=== PATIENT | female | born 1970 | race Caucasian/White ===

== ENCOUNTER 2017-12-02 05:29 | Inpatient (IN) | payer OTHER ==
[2017-12-02] MEDS ORDERED: Gabapentin 300 MG Cap PO ONE (06:12)
[2017-12-02] MEDS ORDERED: Celecoxib 200 MG Cap PO ONE (06:12)
[2017-12-02] MEDS ORDERED: Scopolamine 1.5 MG Transdermal Patch TOP ONE (06:12)
[2017-12-02] MEDS ORDERED: Acetaminophen 500 MG Tab PO ONE (06:12)
[2017-12-02] MEDS ORDERED: cefOXitin 2 GM Vial ONE (06:45)
[2017-12-02] MEDS: Dextrose 5%-Lactated Ringers 1,000 ML IV SCH ×2 (06:58→11:13)
[2017-12-02] MEDS ORDERED: Albuterol/Ipratropium 3.0-0.5 MG/3 ML Neb Soln NEB ONE (07:00)
[2017-12-02] MEDS ORDERED: cefOXitin 2 GM in Sodium Chloride 0.9% 50 ML IV ONE (07:15)
[2017-12-02] MEDS ORDERED: cefOXitin 2 GM in Sodium Chloride 0.9% 100 ML IV ONE (07:15)
[2017-12-02] MEDS ORDERED: Lidocaine 0.4%/D5W 2 GM/500 ML BAG IV SCH (07:30)
[2017-12-02] MEDS ORDERED: Ketamine 500 MG/5 ML MDV IV SCH (07:30)
[2017-12-02] MEDS ORDERED: Lidocaine 2% 100 MG/5 ML Syringe IVPUSH ONE (07:30)
[2017-12-02] MEDS ORDERED: Ropivacaine 60 ML, Dexamethasone 8 MG, EPINEPHrine 0.4 MG, Sodium Chloride 0.9% 17.6 ML NERVRT SCH ×4 (07:30)
[2017-12-02] MEDS ORDERED: Dexamethasone 4 MG/ML SDV ONE (07:32)
[2017-12-02] MEDS ORDERED: Succinylcholine 200 MG/10 ML MDV ONE (07:32)
[2017-12-02] MEDS ORDERED: Propofol 200 MG/20 ML SDV ONE (07:32)
[2017-12-02] MEDS ORDERED: Ondansetron 4 MG/2 ML SDV ONE (07:32)
[2017-12-02] MEDS ORDERED: Glycopyrrolate 0.2 MG/ML 5 ML MDV ONE (07:32)
[2017-12-02] MEDS ORDERED: Rocuronium 50 MG/5 ML Vial ONE (07:32)
[2017-12-02] MEDS ORDERED: Neostigmine Methylsulfate 1 MG/ML 5 ML Syringe ONE (07:32)
[2017-12-02] MEDS ORDERED: Labetalol 20 MG/4 ML Syringe ONE (07:58)
[2017-12-02] MEDS ORDERED: Insulin Aspart 100 Units/ML 3 ML Pen SUBCUT ONE ×3 (09:40→21:44)
[2017-12-02] MEDS ORDERED: Dextrose 5%-Lactated Ringers 1,000 ML IV SCH (12:00)
[2017-12-02] MEDS ORDERED: Albuterol/Ipratropium 3.0-0.5 MG/3 ML Neb Soln ONE (12:00)
[2017-12-02] MEDS ORDERED: HYDROmorphone/Normal Saline 15 MG/30 ML PCA IV PRN (12:01)
[2017-12-02] MEDS ORDERED: Naloxone 0.4 MG/ML SDV IV PRN (12:01)
[2017-12-02] MEDS ORDERED: Labetalol 20 MG/4 ML Syringe IVPUSH PRN (13:00)
[2017-12-02] MEDS ORDERED: Metoclopramide 10 MG/2 ML SDV IVPUSH PRN (13:00)
[2017-12-02] MEDS ORDERED: Albuterol/Ipratropium 3.0-0.5 MG/3 ML Neb Soln INH PRN (13:00)
[2017-12-02] MEDS ORDERED: 50% Dextrose in Water 50 ML Syringe IVPUSH PRN (13:00)
[2017-12-02] MEDS ORDERED: Ondansetron 4 MG/2 ML SDV IVPUSH PRN (13:00)
[2017-12-02] MEDS ORDERED: diphenhydrAMINE 50 MG/ML SDV IVPUSH PRN (13:00)
[2017-12-02] MEDS ORDERED: Glucagon,Human Recombinant 1 MG Vial IM PRN (13:00)
[2017-12-02] MEDS ORDERED: hydrOXYzine HCl 100 MG/2 ML SDV IM PRN (13:00)
[2017-12-02] MEDS: cefOXitin 2 GM in Sodium Chloride 0.9% 50 ML IV SCH ×2 (13:24→19:59)
[2017-12-02] MEDS ORDERED: Pantoprazole 40 MG Vial IVPUSH SCH (14:00)
[2017-12-02] MEDS ORDERED: Gabapentin 250 MG/5 ML Solution ML 470 ML Bottle PO SCH (14:00)
[2017-12-02] MEDS: Acetaminophen Soln 650 MG/20.3 ML UD Cup PO SCH ×2 (14:33→20:00)
[2017-12-02] MEDS: Albuterol/Ipratropium 3.0-0.5 MG/3 ML Neb Soln INH SCH ×2 (14:38→20:00)
[2017-12-02] MEDS ORDERED: MVI, Adult with Vitamin K 10 ML, Thiamine 200 MG, Chromium/Copper/Mang/Selen/Zn 1 ML in... IV SCH ×4 (16:00)
[2017-12-02] MEDS: Heparin Sodium 5,000 Units/ML Vial SUBCUT SCH (17:07)
[2017-12-02] MEDS ORDERED: Insulin Detemir 100 Units/ML 3 ML Pen SUBCUT ONE ×2 (18:00→21:45)
[2017-12-02] MEDS: Insulin Aspart 100 Units/ML 3 ML Pen SUBCUT PRN (21:45)
[2017-12-02] MEDS: Lactated Ringers 1,000 ML IV SCH (23:28)
[2017-12-03] MEDS: cefOXitin 2 GM in Sodium Chloride 0.9% 50 ML IV SCH ×2 (02:00→08:02)
[2017-12-03] MEDS: Acetaminophen Soln 650 MG/20.3 ML UD Cup PO SCH ×4 (02:03→20:43)
[2017-12-03] MEDS ORDERED: Iohexol 647 MG/ML 50 ML SDV PO STA (03:48)
[2017-12-03] MEDS: Insulin Aspart 100 Units/ML 3 ML Pen SUBCUT PRN ×3 (04:35→16:33)
[2017-12-03] MEDS: Heparin Sodium 5,000 Units/ML Vial SUBCUT SCH ×2 (05:43→17:43)
[2017-12-03] MEDS: Lactated Ringers 1,000 ML IV SCH (05:43)
[2017-12-03] MEDS: Albuterol/Ipratropium 3.0-0.5 MG/3 ML Neb Soln INH SCH ×4 (07:29→20:44)
[2017-12-03] MEDS ORDERED: Albuterol 8 GM Inhaler INH PRN (07:50)
[2017-12-03] MEDS ORDERED: Ondansetron 4 MG Tab.DIS PO PRN (07:50)
[2017-12-03] MEDS: Celecoxib 200 MG Cap PO SCH (08:04)
[2017-12-03] MEDS: [UNRECOGNIZED DRUG - REMARK] TOP SCH (08:32)
[2017-12-03] MEDS ORDERED: metFORMIN 500 MG Tab PO SCH (09:00)
[2017-12-03] MEDS ORDERED: Pantoprazole 40 MG Delayed-Release Granules 1 Packet PO SCH (09:00)
--- NOTE | 2017-12-03 09:32 | CR ---
UGI wo KUB HISTORY: eval R -Y GBP FINDINGS: After administration of oral contrast, upright views were obtained. Post operative changes gastric bypass. Surgical drains in place. No evidence for leak. Contrast passes freely into proximal small bowel loops. IMPRESSION: No evidence for leak or obstruction.
[2017-12-03] MEDS: Aspirin 81 MG Tab.Chew PO SCH (09:59)
[2017-12-03] MEDS: Pantoprazole 40 MG Tab.CR PO SCH (10:00)
--- NOTE | 2017-12-03 11:14 | OR ---
DATE OF PROCEDURE: 12/02/2017 PREOPERATIVE DIAGNOSIS: Morbid obesity. POSTOPERATIVE DIAGNOSES: 1. Morbid obesity. 2. Marked hepatomegaly. 3. Paraesophageal diaphragmatic hernia. 4. Mediastinal lipoma. 5. Immobile small bowel requiring additional small bowel resection to facilitate adequate mobility of jejunojejunostomy to allow a tension-free gastrojejunostomy. OPERATIVE PROCEDURES: 1. Laparoscopic Maddie-en-Y gastric bypass with long limb gastroenterostomy (61770). 2. Jignesh-Cut needle liver biopsy (53318). 3. Repair of paraesophageal diaphragmatic hernia (04858). 4. Excision of mediastinal lipoma (32428). 5. Small bowel resection (30315). ANESTHESIA: General. ASSISTANTS: 1. Ekaterina Edwards PA-C. 2. VENKATA Wright. INDICATION FOR PROCEDURE: This is a 47-year-old presenting with longstanding morbid obesity with increasingly significant comorbidities. After preoperative evaluation and discussion, she wished to proceed with a gastric bypass procedure. Potential risks including bleeding, infection, leaks from various GI tract closures, problems with bowel obstruction overtime, as well as the possibility of cardiopulmonary, septic, or hemorrhagic complications leading to were all discussed, and the patient wishes to proceed. DETAILS OF PROCEDURE: The patient was taken to the operating room and after general endotracheal anesthesia was induced, she was placed in a lithotomy position. Orogastric tube was placed, and the abdomen was prepped and draped. A 15 cm inferior and 5 cm left of xiphoid process, a transverse incision was made, and the peritoneal cavity entered under direct vision with an Optiview trocar and inflated to 15 mmHg pressure with CO2. The laparoscope was reinserted. No underlying trocar insertion site injuries were seen. Following this, bilateral subcostal transversus abdominis plane blocks were placed with direct visualization of the needle in the correct plane and injection of the standard solution bilaterally. Following this, 5 additional trocars were placed across the upper and midabdomen, and general exploration was undertaken. The patient was noted to have fairly marked fatty infiltration of liver with the liver volume being roughly 2 to 3 times normal. Jignesh-Cut needle biopsy was obtained from the left lobe of the liver and minimal bleeding from the biopsy site was controlled with electrocautery. The omentum was then divided in the midline up to the level of the transverse colon. This allowed identification of the small bowel to the ligament of Treitz. Small bowel was then traced out 150 cm distal to that point and was divided with the ROBBY stapler. The mesentery at this point was noted to be quite fat-laden and fairly immobile. Given this to eventually allow adequate mobility of the jejunojejunostomy to allow a relatively tension-free gastrojejunostomy, roughly 10 cm of the distal end of the divided biliopancreatic limb was excised. The underlying mesentery was divided with the ROBBY stapler. The bowel was then divided with a ROBBY stapler as well. Small bowel specimen was then delivered from the field. We then traced out 200 cm distal to that point, where the [id number] enteroenterostomy was accomplished with an internal firing of the Endo-ROBBY 60-mm stapler. The common opening was then closed transversely with the same stapler, angles anastomosed, and mesenteric defect approximated with some 0 Ethibond stitch along with 4 mL of fibrin sealant. The Maddie limb was then mobilized through the gastroesophageal junction. The lengthening procedure appeared to be quite satisfactory as this came up at this point with little in the way of tension. Attention was then taken to formation of the gastric pouch. Upon retraction of the liver, the patient was noted to have a moderate-sized paraesophageal diaphragmatic hernia, containing some perigastric fat along with a tongue of omentum and some of the adjacent gastric fundus. This was all reduced. The peritoneum overlying it was incised and reflected downward. A mediastinal lipoma was then encountered, which was removed to facilitate more adequate closure of the crural defect. Once this was accomplished, an anterior repair of the defect was accomplished with 0 Ethibond sutures reinforced with PTFE pledgets. The gastrointestinal balloon catheter was then inflated to 15 mL and pulled up snugly against the EG junction. Gastric wall over the apex of balloon was then marked with an electrocautery. The balloon catheter was deflated and pulled up from the esophagus. The lesser omental tissue adjacent to the gastric cardia was then incised, allowing dissection behind the stomach at that level. Pouch formation was initiated with a transverse firing of the ROBBY stapler at the level of the cauterized sagar in the gastric cardia. Pouch was then completed with 2 additional firings of the ROBBY stapler up to and through the angle of His. Upon completion of the pouch, both staple lines were noted to be intact. The anvil of a 25-mm EEA stapler was then attached to [place] sump type tube. The latter was brought down through the mouth and taken out through the small opening in the gastric pouch, allowing the anvil likewise to be taken down the gastric pouch. Divided end of the Maddie limb was then opened and main body of the EEA stapler passed several centimeters in the lumen of the small bowel, brought up the anvil and united with it, thus creating the gastrojejunostomy. Upon removal of the stapler, double donuts of mucosa were noted within it. Small bowel was closed off with vascular staple line. Gastrojejunostomy was reinforced with some 3-0 Vicryl seromuscular stitch along with fibrin sealant. A leak test was then accomplished with injection of 120 mL of air in the gastric pouch while submerged with a cefoxitin-containing saline solution. No leaks were identified. A single Philippe-Em drain was taken out through the left lateral trocar site and positioned adjacent to the gastrojejunostomy and from there up into the area of the splenic fossa. The trocars were then sequentially removed. The fascia was closed with 0 Vicryl stitch and the skin with 4-0 Vicryl skin stitch. Drain was affixed with 4-0 Vicryl stitch as well. The patient was taken to the recovery room in a satisfactory condition. There were no evident complications. Physician therapist's assistant, Ekaterina Edwards, played an essential role in assisting in this case, helping to position the patient as well as suturing and cutting sutures when indicated and retracting structures as needed. Her presence improved patient safety and decreased the operative time. Iván Figueroa MD Job #: [id number]
--- NOTE | 2017-12-03 13:49 | PN ---
DATE OF SERVICE: 12/03/2017 SUBJECTIVE: Chichi is postop day #1 following a laparoscopic Maddie-en-Y gastric bypass surgery. Her pain is controlled. Upper GI this morning was normal. Vital signs are stable. Blood sugars have been elevated at 365 and 245. She is receiving Lantus twice daily and NovoLog to cover her blood sugars. Pain is 0/10. REVIEW OF SYSTEMS: Remainder of review of systems negative for any pertinent positives and negatives. OBJECTIVE: GENERAL: Chichi is a 47-year-old female. Alert and orientated. VITAL SIGNS: TPR is 97, 87, 18, and blood pressure 122/69. HEENT: Negative. NECK: Supple. HEART: Regular rate and rhythm. LUNGS: Clear. ABDOMEN: Dressings dry and intact. Abdominal binder is on. IRMA drain put out 140 mL of a light pink serosanguineous drainage. EXTREMITIES: SCDs are on. There is no peripheral edema. ASSESSMENT: Laparoscopic Maddie-en-Y gastric bypass surgery, liver biopsy, and repair of diaphragmatic hernia for morbid obesity, hepatomegaly, diaphragmatic hernia, and mediastinal lipoma. Date of surgery, 12/02/2017, Iván Figueroa MD. PLAN: 1. Decrease IV to 100 mL per hour. 2. Dressing off and may shower. 3. Communication order, 3 med cups per hour, record at bedside. 4. Step-2 gastric bypass diet without cereal. 5. Good pulmonary toilet. 6. We will evaluate p.r.n. or in a.m. Ekaterina Edwards PA-C /[id number]
[2017-12-04] MEDS: Acetaminophen Soln 650 MG/20.3 ML UD Cup PO SCH ×4 (02:16→20:52)
[2017-12-04] MEDS: Heparin Sodium 5,000 Units/ML Vial SUBCUT SCH ×2 (06:10→18:56)
--- NOTE | 2017-12-04 07:47 | PCM.PN ---
- General Info Date of Service: 12/04/17 Admission Dx/Problem (Free Text): 1. Morbid Obesity Subjective Update: Patient is POD #2. Her vitals were stable over night and there were no major problems. Her blood sugars have been trending downwards since admission and should not need further treatment. She is up, ambulating and urinating although she has not has a bowel movement since surgery. She has not experienced any nausea over night. Patient will be given vitamin B12 this am per protocol. Functional Status: Reports: Pain Controlled, Tolerating Diet, Ambulating, Incentive Spirometry - Review of Systems General: Reports: No Symptoms HEENT: Reports: No Symptoms Pulmonary: Reports: No Symptoms Cardiovascular: Reports: No Symptoms Gastrointestinal: Reports: No Symptoms Genitourinary: Reports: No Symptoms Musculoskeletal: Reports: No Symptoms Skin: Reports: No Symptoms Neurological: Reports: No Symptoms Psychiatric: Reports: No Symptoms Systems Review Comment:: Remainder of ROS is negative for any pertinent positives or negatives. - Patient Data Vitals - Most Recent: Last Vital Signs Temp 97.4 F 12/04/17 03:00 Pulse 81 12/04/17 03:00 Resp 16 12/04/17 03:00 BP 109/67 12/04/17 03:00 Pulse Ox 91 L 12/04/17 03:00 Weight - Most Recent: 289 lb I&O - Last 24 Hours: Intake & Output 12/03/17 12/04/17 12/04/17 22:59 06:59 14:59 Intake Total 480 300 Output Total 820 30 Balance -340 270 Lab Results Last 24 Hours: Laboratory Results - last 24 hr 12/04/17 12/04/17 Range/Units 04:30 04:30 WBC 10.4 (4.5-11.0) K/uL RBC 3.87 (3.30-5.50) M/uL Hgb 10.8 L (12.0-15.0) g/dL Hct 35.2 L (36.0-48.0) % MCV 91 (80-98) fL MCH 28 (27-31) pg MCHC 31 L (32-36) % Plt Count 259 (150-400) K/uL Sodium 142 (140-148) mmol/L Potassium 3.9 (3.6-5.2) mmol/L Chloride 107 (100-108) mmol/L Carbon Dioxide 26 (21-32) mmol/L Anion Gap 9.5 (5.0-14.0) mmol/L BUN 14 (7-18) mg/dL Creatinine 0.7 (0.6-1.0) mg/dL Est Cr Clr Drug Dosing 88.44 mL/min Estimated GFR (MDRD) > 60 (>60) Glucose 155 H (74-106) mg/dL Calcium 8.4 L (8.5-10.1) mg/dL Phosphorus 4.3 (2.5-4.9) mg/dL Magnesium 2.0 (1.8-2.4) mg/dL Total Bilirubin 0.3 (0.2-1.0) mg/dL AST 18 (15-37) U/L ALT 36 (12-78) U/L Alkaline Phosphatase 61 (46-116) U/L Total Protein 6.4 (6.4-8.2) g/dL Albumin 2.7 L (3.4-5.0) g/dL Globulin 3.7 H (2.3-3.5) g/dL Albumin/Globulin Ratio 0.7 L (1.2-2.2) Med Orders - Current: Current Medications Acetaminophen (Tylenol) 650 mg PO Q6H [facility] Last Admin: 12/04/17 02:16 Dose: 650 mg Albuterol (Ventolin Hfa) 0 gm INH Q6H PRN PRN Reason: Shortness of Breath Albuterol/Ipratropium (Duoneb 3.0-0.5 Mg/3 Ml) 3 ml INH QIDRT [facility] Last Admin: 12/03/17 20:44 Dose: Not Given Albuterol/Ipratropium (Duoneb 3.0-0.5 Mg/3 Ml) 3 ml INH ASDIRECTED PRN PRN Reason: BREATHING Aspirin (Aspirin) 81 mg PO DAILY [facility] Last Admin: 12/03/17 09:59 Dose: 81 mg Celecoxib (Celebrex) 200 mg PO DAILY@0800 [facility] Last Admin: 12/03/17 08:04 Dose: 200 mg Cyanocobalamin (Vitamin B12) 1,000 mcg IM ONETIME ONE Stop: 12/04/17 09:01 Dextrose/Water (Dextrose 50% In Water) 50 ml IVPUSH ONETIME PRN PRN Reason: ACCUCHECK LESS THAN 70 Diphenhydramine HCl (Benadryl) 25 - 50 mg IVPUSH Q4H PRN PRN Reason: ITCHING Glucagon (Glucagen) 1 mg IM ONETIME PRN PRN Reason: ACCUCHECK LESS THAN 70 Heparin Sodium (Porcine) (Heparin Sodium) 5,000 units SUBCUT Q12H [facility] Last Admin: 12/04/17 06:10 Dose: 5,000 units Hydromorphone HCl (Dilaudid Rotary Drier Feeder 15 Mg In Ns 30 Ml) 0 mg IV ASDIRECTED PRN; Protocol PRN Reason: EXTENSION WORK DIRECTOR PAIN CONTROL Hydroxyzine HCl (Vistaril) 75 - 100 mg IM Q4H PRN PRN Reason: pain Insulin Aspart (Novolog) 0 unit SUBCUT Q6H PRN; Protocol PRN Reason: PER CORRECTIONAL DOSING Last Admin: 12/03/17 16:33 Dose: 5 units Miscellaneous Information (Remove Patch) 1 ea TRDERM ONETIME ONE Stop: 12/04/17 10:01 Naloxone HCl (Narcan) 0.1 mg IV ASDIRECTED PRN PRN Reason: decreased respiratory rate Check Transderm (Patch Daily) 1 each TOP DAILY [facility] Stop: 12/04/17 09:01 Last Admin: 12/03/17 08:32 Dose: Not Given Ondansetron HCl (Zofran Odt) 4 mg PO Q4H PRN PRN Reason: Nausea/Vomiting Last Admin: 12/03/17 17:43 Dose: 4 mg Pantoprazole Sodium (Protonix) 40 mg PO DAILY@0730 [facility] Last Admin: 12/03/17 10:00 Dose: 40 mg Discontinued Medications Acetaminophen (Tylenol Extra Strength) 1,000 mg PO ONETIME ONE Stop: 12/02/17 06:13 Last Admin: 12/02/17 06:25 Dose: 1,000 mg Albuterol/Ipratropium (Duoneb 3.0-0.5 Mg/3 Ml) 3 ml NEB ONETIME ONE Stop: 12/02/17 07:01 Last Admin: 12/02/17 06:25 Dose: 3 ml Albuterol/Ipratropium (Duoneb 3.0-0.5 Mg/3 Ml) Confirm Administered Dose 3 ml .ROUTE .STK-MED ONE Stop: 12/02/17 12:01 Last Admin: 12/02/17 12:09 Dose: 3 ml Cefoxitin Sodium (Mefoxin) Confirm Administered Dose 2 gm .ROUTE .[facility] ONE Stop: 12/02/17 06:46 Last Admin: 12/02/17 08:01 Dose: 2 gm Celecoxib (Celebrex) 200 mg PO ONETIME ONE Stop: 12/02/17 06:13 Last Admin: 12/02/17 06:25 Dose: 200 mg Ropivacaine 60 ml/Dexamethasone 8 mg/Epinephrine HCl 0.4 mg/ Sodium Chloride 17.6 ml 0 ml NERVRT ASDIRECTED [facility] Last Admin: 12/02/17 07:58 Dose: 80 syringe Dexamethasone (Dexamethasone) Confirm Administered Dose 4 mg .ROUTE .[facility] ONE Stop: 12/02/17 07:33 Fentanyl Citrate (Fentanyl) Confirm Administered Dose 500 mcg .ROUTE .[facility] ONE Stop: 12/02/17 07:08 Gabapentin (Neurontin) 300 mg PO ONETIME ONE Stop: 12/02/17 06:13 Last Admin: 12/02/17 06:25 Dose: 300 mg Gabapentin (Neurontin) 300 mg PO TID [facility] Last Admin: 12/02/17 14:01 Dose: 300 mg Glycopyrrolate (Robinul) Confirm Administered Dose 1 mg .ROUTE .[facility] ONE Stop: 12/02/17 07:33 Ketamine HCl 100 mg/ Sodium (Chloride) 100 mls @ 16.62 mls/hr IV ASDIRECTED [facility] Lidocaine HCl/Dextrose (Lidocaine 2 Gm/D5w 500 Ml) 2 gm in 500 mls @ 30 mls/hr IV .[id number] [facility] Last Admin: 12/02/17 11:50 Dose: 2 mg/min, 30 mls/hr Dextrose/Lactated Ringer's (Dextrose 5%-Lactated Ringers) 1,000 mls @ 100 mls/ hr IV ASDIRECTED [facility] Last Admin: 12/02/17 11:13 Dose: 100 mls/hr Insulin Human Regular 100 unit (/ Sodium Chloride) 100 mls @ 0 mls/hr IV TITRATE [facility]; Protocol Cefoxitin Sodium 2 gm/ Sodium (Chloride) 50 mls @ 100 mls/hr IV ONETIME ONE Stop: 12/02/17 07:44 Last Admin: 12/02/17 07:20 Dose: 100 mls/hr Dextrose/Lactated Ringer's (Dextrose 5%-Lactated Ringers) 1,000 mls @ 175 mls/ hr IV ASDIRECTED [facility] Multivitamins/Minerals 10 ml/Thiamine HCl 200 mg/ Chromium/Copper/Manganese/ Seleni/Zn 1 ml/ Dextrose/Lactated Ringer's 1,013 mls @ 175 mls/hr IV DAILY@ 1600 [facility] Last Admin: 12/02/17 17:09 Dose: 175 mls/hr Cefoxitin Sodium 2 gm/ Sodium (Chloride) 50 mls @ 100 mls/hr IV Q6H [facility] Stop: 12/03/17 08:29 Last Admin: 12/03/17 08:02 Dose: 100 mls/hr Lactated Ringer's (Ringers, Lactated) 1,000 mls @ 175 mls/hr IV ASDIRECTED [facility] Last Admin: 12/03/17 05:43 Dose: 175 mls/hr Insulin Aspart (Novolog) 5 unit SUBCUT ONETIME ONE Stop: 12/02/17 09:41 Last Admin: 12/02/17 09:42 Dose: 5 units Insulin Aspart (Novolog) 15 unit SUBCUT ONETIME ONE Stop: 12/02/17 17:18 Last Admin: 12/02/17 17:25 Dose: 15 units Insulin Aspart (Novolog) 15 unit SUBCUT ONETIME ONE Stop: 12/02/17 21:45 Last Admin: 12/02/17 21:58 Dose: Not Given Insulin Detemir (Levemir) 15 unit SUBCUT ONETIME ONE Stop: 12/02/17 18:01 Last Admin: 12/02/17 17:26 Dose: 15 units Insulin Detemir (Levemir) 15 unit SUBCUT ONETIME ONE Stop: 12/02/17 21:46 Last Admin: 12/02/17 21:57 Dose: 15 units Iohexol (Omnipaque-300) 50 ml PO .ASDIRECTED [facility] Stop: 12/03/17 03:49 Last Admin: 12/03/17 04:00 Dose: 50 ml Ketamine HCl (Ketalar) 28 mg IV ASDIRECTED [facility] Labetalol HCl (Normodyne) Confirm Administered Dose 20 mg .ROUTE .STK-MED ONE Stop: 12/02/17 07:59 Labetalol HCl (Normodyne) 5 - 15 mg IVPUSH Q1H PRN PRN Reason: SBP over 160 OR DBP over 95 Lidocaine HCl (Xylocaine 2%) 130 mg IVPUSH ONETIME ONE Stop: 12/02/17 07:31 Last Admin: 12/02/17 10:24 Dose: Not Given Metformin HCl (Glucophage) 1,000 mg PO BIDMEALS [facility] Metoclopramide HCl (Reglan) 10 mg IVPUSH Q6H PRN PRN Reason: NAUSEA NOT CONTROL BY ZOFRAN Neostigmine Methylsulfate (Neostigmine) Confirm Administered Dose 5 mg .ROUTE .STK-MED ONE Stop: 12/02/17 07:33 Ondansetron HCl (Zofran) Confirm Administered Dose 4 mg .ROUTE .STK-MED ONE Stop: 12/02/17 07:33 Ondansetron HCl (Zofran) 4 mg IVPUSH Q4H PRN PRN Reason: Nausea/Vomiting Pantoprazole Sodium (Protonix Iv) 40 mg IVPUSH Q24H [facility] Last Admin: 12/02/17 13:20 Dose: 40 mg Pantoprazole Sodium (Protonix Granules) 40 mg PO DAILY@0730 [facility] Propofol (Diprivan 20 Ml) Confirm Administered Dose 200 mg .ROUTE .STK-MED ONE Stop: 12/02/17 07:33 Rocuronium [place] (Zemuron) Confirm Administered Dose 50 mg .ROUTE .STK-MED ONE Stop: 12/02/17 07:33 Scopolamine (Transderm-Scop) 1.5 mg TOP ONETIME ONE Stop: 12/02/17 06:13 Last Admin: 12/02/17 06:27 Dose: 1.5 mg Sodium Chloride (Normal Saline) 500 ml IRR .STK-MED ONE Stop: 12/02/17 08:02 Last Admin: 12/02/17 08:01 Dose: 500 ml Succinylcholine Chloride (Quelicin) Confirm Administered Dose 200 mg .ROUTE .STK -MED ONE Stop: 12/02/17 07:33 - Exam General: Alert, Oriented, Cooperative, No Acute Distress HEENT: Pupils Equal, Mucous Membr. Moist/[place] Neck: Supple Lungs: Clear to Auscultation, Normal Respiratory Effort Cardiovascular: Regular Rate, Regular Rhythm GI/Abdominal Exam: Normal Bowel Sounds Extremities: Normal Range of Motion Skin: Warm, Dry (Severe generalized psoriasis. ), Intact, Other Wound/Incisions: Healing Well, Drainage (Serosanguous. ) Neurological: No New Focal Deficit Psy/Mental Status: Alert, Normal Affect, Normal Mood - Problem List Review Problem List Initiated/Reviewed/Updated: Yes - Assessment Assessment:: 1. Morbid Obesity 2. Marked hepatomegaly 3. Paraesophageal diaphragmatic hernia 4. Mediastinal lipoma 5. Immobile small bowel requiring additional small bowel resection to facilitate adequate mobility of jejunostomy to decrease tension on the gastrojejunostomy - Plan Plan:: 1. Warm packs for left arm to help with swelling from IV infiltration 2. Milk of Magnesium 30mL po qd for bowel movement 3. Reevaluate prn or in am
[2017-12-04] MEDS: Albuterol/Ipratropium 3.0-0.5 MG/3 ML Neb Soln INH SCH ×4 (08:06→20:53)
[2017-12-04] MEDS ORDERED: Cyanocobalamin (Vitamin B12) 1,000 MCG/ML SDV IM ONE (09:00)
[2017-12-04] MEDS ORDERED: Magnesium Hydroxide 400 MG/5 ML Susp 30 ML Cup PO ONE (09:00)
[2017-12-04] MEDS: Celecoxib 200 MG Cap PO SCH (09:36)
[2017-12-04] MEDS: Aspirin 81 MG Tab.Chew PO SCH (09:36)
[2017-12-04] MEDS: Pantoprazole 40 MG Tab.CR PO SCH (09:36)
[2017-12-04] MEDS: [UNRECOGNIZED DRUG - REMARK] TOP SCH (09:37)
[2017-12-04] MEDS: Insulin Aspart 100 Units/ML 3 ML Pen SUBCUT PRN (12:07)
[2017-12-05] MEDS: Acetaminophen Soln 650 MG/20.3 ML UD Cup PO SCH ×2 (01:52→07:51)
[2017-12-05] MEDS: Heparin Sodium 5,000 Units/ML Vial SUBCUT SCH (05:09)
[2017-12-05] MEDS: Pantoprazole 40 MG Tab.CR PO SCH (07:04)
[2017-12-05] MEDS: Albuterol/Ipratropium 3.0-0.5 MG/3 ML Neb Soln INH SCH (07:36)
[2017-12-05] MEDS: Celecoxib 200 MG Cap PO SCH (07:51)
[2017-12-05] MEDS: Aspirin 81 MG Tab.Chew PO SCH ×2 (07:51→08:41)
--- NOTE | 2017-12-05 10:21 | DISCH ---
ADMISSION DIAGNOSES: 1. Morbid obesity, BMI 48. 2. Gastroesophageal reflux disease. 3. Hyperlipidemia. 4. Psoriasis. 5. Diabetes type 2. DISCHARGE DIAGNOSES: 1. Laparoscopic Maddie-en-Y gastric bypass surgery with long limb gastroenterostomy. 2. Jignesh-Cut needle liver biopsy. 3. Repair of paraesophageal diaphragmatic hernia. 4. Excision of mediastinal lipoma and small bowel resection for morbid obesity, marked hepatomegaly, periesophageal diaphragmatic hernia, mediastinal lipoma, and an immobile small bowel requiring additional small bowel resection to facilitate adequate mobility of the jejunojejunostomy to allow a tension-free gastrojejunostomy. Date of surgery is 12/02/2017. HISTORY: Chichi is a 47-year-old female with longstanding history of morbid obesity and increasing comorbidities. After preoperative evaluation and discussion of possible risks and possible complications, she wished to proceed with surgical procedure. HOSPITAL COURSE: Chichi had her surgery on 12/02/2017. She had no operative complications. On postop day #1, she was started on a step-2 gastric bypass diet without cereal. She received dietary instructions. Her blood sugars remained elevated. She was given mealtime coverage and Lantus. On postop day #2, blood sugars were decreasing. She received no additional blood sugar coverage. Her activity was good. Oral intake was adequate. She did have a bowel movement on postop day #2 and blood sugars remained to be decreasing without any additional coverage. She did have some bowel stimulation and had a bowel movement. She had left lower arm and hand swelling from IV infiltration with warm packs were applied as needed. On postop day #3, she was able to be discharged to home without any complications. PHYSICAL EXAMINATION: VITAL SIGNS: Chichi Lora is a 47-year-old female, height is 5 feet 5 inches, weight is 289 pounds, BMI is 48. TPR 95.6, 67, 16, blood pressure is 153/82. HEENT: Negative. NECK: Supple. HEART: Regular rate and rhythm. LUNGS: Clear. ABDOMEN: Trocar incisions look good. Sutures in place, 4 x 4 over IRMA drain site. Abdominal binder is on. EXTREMITIES: Without peripheral edema. DISPOSITION: Discharged to home. CONDITION: Stable and improving. FOLLOWUP: Followup appointment with Ekaterina Edwards PA-C, on 12/16/2017 at 10:00 a.m. MEDICATIONS: 1. Tylenol 650 mg chewable or liquid q.6 hours. 2. Celebrex 200 mg daily for 14 days. 3. Zofran ODT 4 mg q.4 hours p.r.n. nausea. Continue home medications: 1. Albuterol sulfate 2 puffs every 6 hours p.r.n. shortness of breath. 2. DuoNeb 1 every 6 hours p.r.n. shortness of breath. 3. Aspirin 81 mg daily. 4. Omeprazole 20 mg daily. She is to stop takin. Glucotrol. 2. Metformin. 3. Calcium supplement. 4. Vitamin D3. 5. Vitamin B12. 6. Multivitamin. 7. B complex until further directions. DIET: Step-2 gastric bypass diet with no cereal for 2 weeks. Drink 8 to 10 glasses of water a day. ACTIVITY: No lifting greater than 10 pounds for 2 weeks. Walk at least 6 times daily inside your home. Driving, do not drive for 1 week. Shower/bathing, she may shower. DISCHARGE INSTRUCTIONS: Keep operative site clean and dry. Wear abdominal binder for 2 weeks and then as tolerated. Notify provider for any fever, increased pain, nausea, or vomiting. Special instructions: 1. Check blood sugars twice a day and record results. Bring to clinic appointments. 2. Use incentive spirometer 10 times every hour in a row while awake for 2 weeks.
== END 2017-12-05 11:10 | disposition home or self-care (01) | DRG 621 ==
LOC: JP.SDS 05:29 → JP.SDSSCHI 05:29 → JP.2SS 09:20 → EDSTATUS 09:45
PROVIDERS: ADMIT Surgery; ATTEND Surgery
PROC: 0D164ZA Bypass Stomach to Jejunum, Percutaneous Endoscopic Approach (ICD-10-PCS; principal; 2017-12-02)
PROC: 0FB24ZX Excision of Left Lobe Liver, Percutaneous Endoscopic Approach, Diagnostic (ICD-10-PCS; 2017-12-02)
PROC: 0BQT4ZZ Repair Diaphragm, Percutaneous Endoscopic Approach (ICD-10-PCS; 2017-12-02)
PROC: 0WBC4ZX Excision of Mediastinum, Percutaneous Endoscopic Approach, Diagnostic (ICD-10-PCS; 2017-12-02)
PROC: 0DB94ZX Excision of Duodenum, Percutaneous Endoscopic Approach, Diagnostic (ICD-10-PCS; 2017-12-02)
PROC: 3E0T3BZ Introduction of Anesthetic Agent into Peripheral Nerves and Plexi, Percutaneous Approach (ICD-10-PCS; 2017-12-02)
DX: E66.01 Morbid (severe) obesity due to excess calories (principal); Z68.42 Body mass index [BMI] 45.0-49.9, adult; R16.0 Hepatomegaly, not elsewhere classified; K44.9 Diaphragmatic hernia without obstruction or gangrene; D17.4 Benign lipomatous neoplasm of intrathoracic organs; K59.8 Other specified functional intestinal disorders; E11.9 Type 2 diabetes mellitus without complications; E78.5 Hyperlipidemia, unspecified; L40.9 Psoriasis, unspecified; K21.9 Gastro-esophageal reflux disease without esophagitis; Z79.84 Long term (current) use of oral hypoglycemic drugs; K76.0 Fatty (change of) liver, not elsewhere classified; Z79.82 Long term (current) use of aspirin; Z91.030 Bee allergy status; Z88.5 Allergy status to narcotic agent
CPT/HCPCS: 36415; 74240; 74240-26; 80053; 82962; 83735; 84100; 85027; 86850; 86900; 86901; 88304; 88307; 88313; 94640; A9270-GY; C9113; J0171; J0330; J0694; J1100; J1644; J2001; J2405; J2704; J2710; J2795; J3010; J3411; J3420; J7030; J7042; J7050; J7120; J7620; Q9967